=== PATIENT | female | born 1960 | race Two or more races ===

== ENCOUNTER 2020-02-19 11:00 | Emergency (ER) | payer MEDICAID, OTHER ==
[~2020-02-19] VITALS: Ht 162.6 cm; Wt 69.4 kg
[2020-02-19 11:20] VITALS: BP 128/55
[2020-02-19] MEDS ORDERED: cefTRIAXone SOD 1,000 MG VL IM ONE (12:45)
== END 2020-02-19 13:07 | disposition home or self-care (01) ==
LOC: ER 11:00
DX: J12.9 Viral pneumonia, unspecified (principal); E11.22 Type 2 diabetes mellitus with diabetic chronic kidney disease; I12.9 Hypertensive chronic kidney disease with stage 1 through stage 4 chronic kidney disease, or unspecified chronic kidney disease; N18.9 Chronic kidney disease, unspecified; Z20.822 Contact with and (suspected) exposure to COVID-19
CPT/HCPCS: 36415; 71045; 87426; 96372; 99284; C9803; J0696; U0003